=== PATIENT | male | born 1965 | race Caucasian/White ===

== ENCOUNTER 2018-02-08 14:17 | Observation (INO) | payer BC ==
[2018-02-08] MEDS ORDERED: NORMAL SALINE 1000 ML 1,000 ML IV ONE (14:28)
[2018-02-08] MEDS ORDERED: ONDANSETRON HCL INJ/PF 4 MG/2 ML SDV IV ONE (14:28)
[2018-02-08] MEDS ORDERED: MORPHINE SULFATE 10 MG/ML INJ IV ONE (14:30)
--- NOTE | 2018-02-08 14:31 | ER Document Report ---
ED Medical Screen (RME) - General Chief Complaint: Abdominal Pain Stated Complaint: ABDOMINAL PAIN Time Seen by Provider: 02/08/18 14:23 Notes: Patient is a 52-year-old male that presents to the emergency department for chief complaint of abdominal pain at site of his abdominal hernia. ROS: Unless otherwise stated in this report the patient's positive and negative responses for review of systems for constitutional, eyes, ENT, cardiovascular, respiratory, gastrointestinal, neurological, genitourinary, musculoskeletal, and integumentary systems and related systems to the presenting problem are either as stated in the HPI or were not pertinent or were negative for the symptoms and/or complaints related to the presenting medical problem. PHYSICAL EXAMINATION: Vital signs reviewed. GENERAL: Well-appearing, well-nourished and in no acute distress. HEAD: Atraumatic, normocephalic. EYES: Pupils equal round extraocular movements intact, conjunctiva are normal. ENT: Nares patent NECK: Normal range of motion CV: Heart regular rate and rhythm LUNGS: No respiratory distress Abdomen: There is a palpable supraumbilical hernia, that is tender to palpate, unable to reduce currently on the patient's exam in the chair. Musculoskeletal: Normal range of motion NEUROLOGICAL: Normal speech PSYCH: Normal mood, normal affect. MDM: Patient seen and examined for rapid initial assessment. Vital signs reviewed. A comprehensive ED assessment and evaluation of the patient, analysis of test results and completion of the medical decision making process will be conducted by additional ED providers. *Note is created using voice recognition software and may contain spelling, syntax or grammatical errors. TRAVEL OUTSIDE OF THE [place] IN LAST 30 DAYS: No - Related Data Allergies/Adverse Reactions: No Known Allergies Allergy (Verified 05/30/13 18:12) Past Medical History - Social History Frequency of alcohol use: Occasional Drug Abuse: None - Past Medical History Cardiac Medical History: Reports: Hx Hypercholesterolemia, Hx Hypertension Endocrine Medical History: Reports: Hx Diabetes Mellitus Type 2 Renal/ Medical History: Denies: Hx Peritoneal Dialysis Past Surgical History: Reports: Hx Cardiac Surgery - stents Physical Exam - Vital signs Vitals: Temp Pulse Resp BP Pulse Ox 97.9 F 82 18 158/101 H 95 02/08/18 14:21 02/08/18 14:21 02/08/18 14:21 02/08/18 14:21 02/08/18 14:21 Course - Vital Signs Vital signs: Temp Pulse Resp BP Pulse Ox 97.9 F 82 18 158/101 H 95 02/08/18 14:21 02/08/18 14:21 02/08/18 14:21 02/08/18 14:21 02/08/18 14:21 Doctor's Discharge - Discharge Referrals: ТАТЬЯНА MARINELLI MD [Primary Care Provider] - Follow up as needed
--- NOTE | 2018-02-08 14:49 | ER Document Report ---
ED General - General Mode of Arrival: Ambulatory Information source: Patient TRAVEL OUTSIDE OF THE [place] IN LAST 30 DAYS: No <MANUEL ORTEGA - Last Filed: 02/08/18 14:56> <DEMETRIO HOPE - Last Filed: 02/08/18 16:08> - General Chief Complaint: Abdominal Pain Stated Complaint: ABDOMINAL PAIN Time Seen by Provider: 02/08/18 14:23 Notes: Patient is a 52 year old male with HTN, type 2 diabetes, GERD, hyperlipidemia, coronary stents x3, presents to the emergency department complaining of abdominal pain onset this morning. Patient states he began to have pain over his abdominal hernia located above the umbilicus around 7 am this morning. Patient states the pain has been constant, not worsening or getting better and radiates to the left side of his abdomen. He states his last meal was around 2100 last night. Patient also mentions having cold symptoms that he finished his prescribed medications for today. (MANUEL ORTEGA) - Related Data Allergies/Adverse Reactions: No Known Allergies Allergy (Verified 05/30/13 18:12) Past Medical History - General Information source: Patient - Social History Smoking Status: Never Smoker Frequency of alcohol use: Occasional Drug Abuse: None Family History: CAD Patient has suicidal ideation: No Patient has homicidal ideation: No - Past Medical History Cardiac Medical History: Reports: Hx Hypercholesterolemia, Hx Hypertension Endocrine Medical History: Reports: Hx Diabetes Mellitus Type 2 Past Surgical History: Reports: Hx Cardiac Surgery - stents <MANUEL ORTEGA - Last Filed: 02/08/18 14:56> Review of Systems - Review of Systems Constitutional: No symptoms reported EENT: See HPI, Nose congestion Cardiovascular: No symptoms reported Respiratory: No symptoms reported Gastrointestinal: See HPI, Abdominal pain Genitourinary: No symptoms reported Male Genitourinary: No symptoms reported Musculoskeletal: No symptoms reported Skin: No symptoms reported Hematologic/Lymphatic: No symptoms reported Neurological/Psychological: No symptoms reported -: Yes All other systems reviewed and negative <MANUEL ORTEGA - Last Filed: 02/08/18 14:56> Physical Exam - General General appearance: Appears well, Alert In distress: None - HEENT Head: Normocephalic, Atraumatic Eyes: Normal Conjunctiva: Normal Extraocular movements intact: Yes Pupils: PERRL Nasal: Other - Congestion, consistent with history. Mucous membranes: Normal Neck: Normal - Respiratory Respiratory status: No respiratory distress Chest status: Nontender Breath sounds: Normal Chest palpation: Normal - Cardiovascular Rhythm: Regular Heart sounds: Normal auscultation Murmur: No Friction rub: No Gallop: None auscultated - Abdominal Inspection: Obese Distension: No distension Bowel sounds: Normal Tenderness: Tender - Firm mass to the left of midline, just above umbilicus which is tender to palpation. Organomegaly: No organomegaly - Back Back: Normal - Extremities General upper extremity: Normal ROM General lower extremity: Normal ROM - Neurological Neuro grossly intact: Yes Cognition: Normal Orientation: AAOx4 [place] Coma Scale Eye Opening: Spontaneous [place] Coma Scale Verbal: Oriented Nancy Coma Scale Motor: Obeys Commands Nancy Coma Scale Total: 15 Speech: Normal - Psychological Associated symptoms: Normal affect, Normal mood - Skin Skin Temperature: Warm Skin Moisture: Dry Skin Color: Normal <MANUEL ORTEGA - Last Filed: 02/08/18 14:56> - Vital signs Vitals: Temp Pulse Resp BP Pulse Ox 97.9 F 82 18 158/101 H 95 02/08/18 14:21 02/08/18 14:21 02/08/18 14:21 02/08/18 14:21 02/08/18 14:21 Course <MANUEL ORTEGA - Last Filed: 02/08/18 14:56> - Laboratory Result Diagrams: 02/08/18 14:55 02/08/18 14:55 - Consults Dr. Dietrich Time consulted: 15:15 Consulted provider: will come to ER <DEMETRIO HOPE - Last Filed: 02/08/18 16:08> - Re-evaluation Re-evalutation: 02/08/18 15:07 The patient was receiving his pain medication second attempt to reduce the painful supraumbilical mass. He states it suddenly felt like it had relaxed and felt better. On reexamination, the incarcerated hernia mass seems to have reduced itself. This likely occurred due to the patient being laying almost flat on his back and relaxing. (DEMETRIO HOPE) - Vital Signs Vital signs: Temp Pulse Resp BP Pulse Ox 97.9 F 82 18 158/101 H 95 02/08/18 14:21 02/08/18 14:21 02/08/18 14:21 02/08/18 14:21 02/08/18 14:21 - Laboratory Laboratory results interpreted by me: 02/08/18 02/08/18 02/08/18 14:55 14:55 14:55 WBC 11.5 H RDW 14.2 H Absolute Neutrophils 8.4 H Potassium 5.1 H Glucose 140 H Lactic Acid 2.3 H Discharge <MANUEL ORTEGA - Last Filed: 02/08/18 14:56> - Discharge Admitting Provider: Surgicalist Unit Admitted: Surgical Floor <DEMETRIO HOPE - Last Filed: 02/08/18 16:08> - Discharge Clinical Impression: Supraumbilical hernia, High blood pressure associated with diabetes Condition: Stable Disposition: ADMITTED INPATIENT Referrals: ТАТЬЯНА MARINELLI MD [Primary Care Provider] - Follow up as needed Scribe Attestation: 02/08/18 15:20 I personally performed the services described in the documentation, reviewed and edited the documentation which was dictated to the scribe in my presence, and it accurately records my words and actions. (DEMETRIO HOPE) Scribe Documentation - Scribe Written by Scribe:: Erica Das, 02/08/2018 14:51 acting as scribe for :: Constantin <MANUEL ORTEGA - Last Filed: 02/08/18 14:56>
[2018-02-08 15:15] LABS: ABSOLUTE BASOPHILS # (AUTO) 0.1 10^3/uL (0.0-0.2); ABSOLUTE EOSINOPHILS # (AUTO) 0.1 10^3/uL (0.0-0.6); ABSOLUTE MONOCYTES (AUTO) 0.8 10^3/uL (0.1-1.4); ABSOLUTE NEUT (AUTO) 8.4 10^3/uL (1.7-8.2); EOSINOPHILS % (AUTO) 1.2 % (0-6); HEMATOCRIT 46.6 % (37.9-51.0); HEMOGLOBIN 15.8 g/dL (13.5-17.0); LYMPHOCYTES % (AUTO) 17.2 % (13-45); MEAN CORPUSCULAR HEMOGLOBIN 28.9 pg (27.0-33.4); MEAN CORPUSCULAR VOLUME 85 fl (80-97); MONOCYTES % (AUTO) 7.2 % (3-13); PLATELET COUNT 273 10^3/uL (150-450); RED BLOOD COUNT 5.48 10^6/uL (4.35-5.55); RED CELL DISTRIBUTION WIDTH 14.2 % (11.5-14.0); SEGMENTED NEUTROPHILS % (AUTO) 73.4 % (42-78); TOTAL CELLS COUNTED % (AUTO) 100 %; WHITE BLOOD COUNT 11.5 10^3/uL (4.0-10.5)
[2018-02-08 15:36] LABS: BLOOD UREA NITROGEN 15 mg/dL (7-20); CALCIUM 9.9 mg/dL (8.4-10.2); GLUCOSE 140 mg/dL (75-110)
[2018-02-08 15:37] LABS: ALANINE AMINOTRANSFERASE 72 U/L (21-72); ALBUMIN 4.3 g/dL (3.5-5.0); ALKALINE PHOSPHATASE 92 U/L (38-126); ANION GAP 11 (5-19); ASPARTATE AMINO TRANSFERASE 39 U/L (17-59); BILIRUBIN,DIRECT 0.4 mg/dL (0.0-0.4); CARBON DIOXIDE 29 mmol/L (22-30); CHLORIDE 101 mmol/L (98-107); LIPASE 34.1 U/L (23-300); POTASSIUM 5.1 mmol/L (3.6-5.0); SODIUM 141.3 mmol/L (137-145); TOTAL PROTEIN 7.4 g/dL (6.3-8.2)
[2018-02-08] MEDS ORDERED: MORPHINE SULFATE 10 MG/ML INJ IV PRN (16:42)
[2018-02-08] MEDS ORDERED: GLUCAGON,HUMAN RECOMB 1 MG INJ SUBCUT PRN (16:42)
[2018-02-08] MEDS ORDERED: ONDANSETRON HCL INJ/PF 4 MG/2 ML SDV IV PRN (16:42)
[2018-02-08] MEDS ORDERED: DEXTROSE 40% GEL 15 GM TUBE PO PRN ×2 (16:42)
[2018-02-08] MEDS ORDERED: DEXTROSE 50%-WATER 25 GM/50 ML DISP.SYRIN IV PRN ×2 (16:42)
[2018-02-08] MEDS ORDERED: KETOROLAC TROMETHAMINE INJ/PF 30 MG/1 ML SDV IV PRN (16:48)
[2018-02-08] MEDS ORDERED: GLUCAGON,HUMAN RECOMB 1 MG INJ IM PRN (16:49)
[2018-02-08] MEDS ORDERED: INSULIN LISPRO 100 UNIT/ML 3 ML VIAL SUBCUT PRN (16:49)
[2018-02-08] MEDS ORDERED: NITROGLYCERIN 0.4 MG/TAB 25 TAB/BOTTLE SL PRN (16:50)
[2018-02-08 18:04] LABS: APPEARANCE,URINE SLIGHTLY-CLOUDY; BILIRUBIN,URINE NEGATIVE (NEGATIVE); COLOR,URINE YELLOW; GLUCOSE, URINE NEGATIVE (NEGATIVE); KETONES,URINE NEGATIVE (NEGATIVE); LEUKOCYTE ESTERASE,URINE NEGATIVE (NEGATIVE); NITRITE,URINE NEGATIVE (NEGATIVE); PROTEIN,URINE 30 mg/dL (NEGATIVE); URINE SPECIFIC GRAVITY 1.028; UROBILINOGEN,URINE NEGATIVE mg/dL (<2.0)
--- NOTE | 2018-02-08 19:37 | PDOC CONSULTATION ---
Consultation Consult Date: 02/08/18 Attending physician:: CAMILLA ELIZONDO Consult reason:: Preop clearance History of Present Illness Admission Date/PCP: 02/08/18 16:32 ТАТЬЯНА MARINELLI MD Patient complains of: Abdominal pain History of Present Illness: MANNY RENDON is a 52 year old male with HTN, type 2 diabetes, GERD, hyperlipidemia , coronary stents x3, presents to the emergency department complaining of abdominal pain onset this morning. Patient states he began to have pain over his abdominal hernia located above the umbilicus around 7 am this morning. Patient states the pain has been constant, not worsening or getting better and radiates to the left side of his abdomen. He states his last meal was around 2100 last night. Patient also mentions having cold symptoms that he finished his prescribed medications for today. Patient describes having coronary stent placed about 4 or 5 years ago in [place]. He could not remember when his last stress test was. 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 Patient claims to be physically active but does not exercise. Patient does give history of loud snoring. Patient is noted to have elevated lactic acid level. Past Medical History Cardiac Medical History: Reports: Hyperlipidema, Hypertension Endocrine Medical History: Reports: Diabetes Mellitus Type 2 Past Surgical History Past Surgical History: Reports: Coronary Stent Social History Information Source: Patient Smoking Status: Never Smoker - Advance Directive Resuscitation Status: Full Code Surrogate healthcare decision maker:: Patient's boyfriend by the name of madina michael Family History Family History: CAD Parental Family History Reviewed: Yes Children Family History Reviewed: Yes Sibling(s) Family History Reviewed.: Yes Medication/Allergy Home Medications: Metoprolol Succinate [Toprol Xl] 100 mg PO DAILY 05/30/13 Aspirin [Lucy Chewable] 81 mg PO DAILY PRN 01/30/14 Nitroglycerin [Nitrostat 0.4 mg (1/150 Gr) Tabs 25/Bottle] 1 tab SL Q5MP PRN Pantoprazole Sodium 40 mg PO DAILY 01/30/14 Amlodipine Besylate 5 mg PO DAILY 02/08/18 Dulaglutide [Trulicity] 1 dose SQ ASDIR PRN 02/08/18 Rosuvastatin Calcium 5 mg PO DAILY 02/08/18 Telmisartan 80 mg PO DAILY 02/08/18 Allergies/Adverse Reactions: No Known Allergies Allergy (Verified 05/30/13 18:12) Review of Systems Review of Systems: Please see history of present illness and past medical history as wall. Constitutional: No fever or chills reported. Head : No recent chronic headaches, recent head injury. Eyes: No recent eye pain, diplopia, redness, discharge, acute visual changes. Ears: No recent chronic ear pain, acute hearing loss, ear discharge. Oral cavity: No recent ulcerations, bleeding, oral cavity discomfort. Neck: No recent acute neck pain reported. Hematologic: No recent easy bruising or bleeding. Lymphatic: No recent lymph node enlargement reported. Cardiovascular system review: See history of present illness. Respiratory system review: No hemoptysis or blood clots in the lungs reported. Mild Shortness of breath on exertion Gastrointestinal system review: Negative for any recent acute hematemesis, melena. Abdominal pain as noted above. Genitourinary system review: No recent acute or chronic hematuria, flank pain, UTI etc. reported. Skin system review: Negative for any recent abnormal bruising, no rash, no pruritus reported. Neurologic: No prior history of strokes, mini strokes, seizure disorder. Psychologic: No history of major psychosis or major depression reported. Musculoskeletal: Minor aches and pains reported. No acute joint swelling reported. Endocrine: No recent polyuria, polydipsia, recent heat or cold intolerance. Physical Exam Vital Signs: Temp Pulse Resp BP Pulse Ox 98.1 F 67 18 122/75 95 02/08/18 17:46 02/08/18 17:46 02/08/18 14:21 02/08/18 17:46 02/08/18 17:46 Exam: GENERAL: well-nourished and in no acute distress. Alert and oriented x3 HEAD: Atraumatic, normocephalic. EYES: CANDACE, sclera anicteric, conjunctiva are normal. ENT: Moist mucous membranes. No oral ulcerations or bleeding gums noted. No obvious ear, nose or throat abnormalities noted. NECK: supple without lymphadenopathy. Trachea is central. No cervical or axillary lymphadenopathy noted. Carotids are 2+, JVD WNL LUNGS: Breath sounds clear bilaterally. No wheezes rales or rhonchi noted. No significant dullness noted on percussion. CHEST: Palpation of the chest wall shows no significant chest wall tenderness. 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 ABDOMEN: Abdominal wall hernia noted with tenderness and hypoactive bowel sounds. Rest of the exam per surgical list. EXTREMITIES: Pedal pulses are 1-2+, no calf tenderness noted. No clubbing or cyanosis. negative pedal edema noted NEUROLOGICAL: Focused neurological exam showed no significant neurologic deficit. Normal speech, no focal weakness appreciated. PSYCH: Normal mood, normal affect. Judgment and insight within normal limits. SKIN: No significant ecchymosis, skin is noted to be warm. MUSCULOSKELETAL EXAM: No significant acute joint swelling noted. Results Laboratory Results: 02/08/18 17:48 Urine Color YELLOW Urine Appearance SLIGHTLY-CLOUDY Urine pH 6.0 Ur Specific [place] 1.028 Urine Protein 30 H Urine Glucose (UA) NEGATIVE Urine Ketones NEGATIVE Urine Blood NEGATIVE Urine Nitrite NEGATIVE Ur Leukocyte Esterase NEGATIVE Urine WBC (Auto) 1 Urine RBC (Auto) 1 EKG Comments: Sinus rhythm, no acute ST-T wave changes are noted Assessment & Plan - Diagnosis (1) Incarcerated hernia Is this a current diagnosis for this admission?: Yes (2) Hypertension Qualifiers: Hypertension type: essential hypertension Qualified Code(s): I10 - Essential (primary) hypertension Is this a current diagnosis for this admission?: Yes (3) Diabetes Qualifiers: Diabetes mellitus type: type 2 Diabetes mellitus senior care insulin use: unspecified senior care insulin use status Diabetes mellitus complication status : with unspecified complications Qualified Code(s): E11.8 - Type 2 diabetes mellitus with unspecified complications Is this a current diagnosis for this admission?: Yes (4) Coronary artery disease Qualifiers: Coronary Disease-Associated Artery/Lesion type: [place] artery [place] vs. transplanted heart: [place] heart Associated angina: angina presence unspecified Qualified Code(s): I25.10 - Atherosclerotic heart disease of [place] coronary artery without angina pectoris Is this a current diagnosis for this admission?: Yes (5) Preoperative cardiovascular examination Is this a current diagnosis for this admission?: Yes (6) Obesity Qualifiers: Obesity type: unspecified obesity type Obesity classification: unspecified obesity classification Serious obesity comorbidity presence: unspecified whether serious comorbidity present Qualified Code(s): E66.9 - Obesity, unspecified Is this a current diagnosis for this admission?: Yes (7) Sleep-disordered breathing Is this a current diagnosis for this admission?: Yes - Notes Notes: Patient with multiple cardiac risk factors and has elevated lactic acid level. Will obtain a stat EKG and echocardiogram for preop clearance. It seems patient stable from cardiovascular standpoint and seems to need the surgery therefore cleared. Recommend DVT prophylaxis, adequate pain control, pulmonary toilet etc. we will be happy to take care of any postop complications, however cardiology coverage may be somewhat spotty. May consider involving hospitalist if not already involved in this patient's management. Incarcerated hernia/preop cardiovascular examination: This is being suspected and patient to go to the OR. Have been asked to clear patient. Patient currently is stable without any ongoing angina, CHF, patient maintaining sinus rhythm therefore at average risk. Patient coronary stent was about 4 or 5 years ago therefore if antiplatelet agent needs to be held, this could be held. Coronary artery disease: Symptomatically stable. Have ordered a 2D echo just because the lactic acid level is high and patient did not have a recent echocardiogram. He does not know his LV function status. Hypertension: Blood pressure under satisfactory control. Beta-blockers, MARIE inhibitor/ARB preferred. Obesity: Patient will benefit from gradual weight loss this was explained to the patient. This should help multiple comorbidities that he has. Sleep disordered breathing: Patient is noted to have a very narrow oropharynx and Mallampati class IV. Patient also has loud habitual snoring which is bothersome to other people. Patient has been advised to undergo a sleep study at a later date. Patient informed to tell anesthesiologist that he might have sleep apnea syndrome. tomorrow - Time Time Spent: 30 to 50 Minutes - CODE STATUS was discussed, patient remains full code. Surrogate decision-maker unchanged. Multiple medical problems were addressed. More than 50% of the time spent coordinating care, discussing management plans with involved caregivers. Management plans discussed with involved personnels. Medical decision making was of moderate to high complexity , patient's has multiple comorbidities. Medications reviewed and adjusted accordingly: Yes
--- NOTE | 2018-02-08 20:10 | XCELERA REPORT ---
[address] [address] Transthoracic Echocardiogram Report Name: MANNY RENDON Age: 52 yrs Gender: Male : 1965 Patient [facility] Date: 02/08/2018 07:11 PM Height: 69 in Weight: 279 lb BSA: 2.4 m2 Procedure: A complete two-dimensional transthoracic echocardiogram was performed (2D, M-mode, spectral and color flow Doppler). The study was technically adequate with some images being suboptimal in quality. Reason For Study: Preop clearance Ordering Physician: JESSICA HIGGINS Performed By: Chidi Coleman Interpretation Summary The left ventricular ejection fraction is normal. There is mild concentric left ventricular hypertrophy. LV diastolic function could not be adequately assessed. The left ventricle is grossly normal size. Wall motion cannot be accurately commented on, but no definite regional wall motion abnormalities noted. Borderline right ventricular enlargement. The right ventricular systolic function is normal. Borderline left atrial enlargement. The right atrium is normal in size There is a trace amount of mitral regurgitation There is no mitral valve stenosis. There is no aortic valve stenosis No aortic regurgitation is present. There is no tricuspid stenosis. No tricuspid regurgitation. The aortic root is not well visualized but is probably normal size. The inferior vena cava was not visualized There is no pericardial effusion. MMode/2D Measurements & Calculations RVDd: 2.8 cm LVIDd: 4.8 cm FS: 20.5 % Ao root diam: 3.5 cm IVSd: 1.4 cm LVIDs: 3.8 cm EDV(Teich): 105.8 ml Ao root area: 9.4 cm2 LVPWd: 0.73 cm ESV(Teich): 61.6 ml LA dimension: 3.6 cm EF(Teich): 41.7 % LVOT diam: 1.7 cm LVOT area: 2.2 cm2 Doppler Measurements & Calculations MV E max toby: MV P1/2t max toby: Ao V2 max: LV V1 max P.6 cm/sec 100.8 cm/sec 100.8 cm/sec 2.3 mmHg MV A max toby: MV P1/2t: 69.7 msec Ao max PG: LV V1 max: 64.2 cm/sec MVA(P1/2t): 3.2 cm2 4.1 mmHg 76.0 cm/sec MV E/A: 1.1 MV dec slope: KORTNEY(V,D): 1.7 cm2 423.2 cm/sec2 MV dec time: 0.27 sec PA V2 max: MV P1/2t-pr_phl: 136.3 cm/sec 69.7 msec PA max P.5 mmHg Left Ventricle The left ventricle is grossly normal size. There is mild concentric left ventricular hypertrophy. The left ventricular ejection fraction is normal. LV diastolic function could not be adequately assessed. Wall motion cannot be accurately commented on, but no definite regional wall motion abnormalities noted. Right Ventricle Borderline right ventricular enlargement. There is normal right ventricular wall thickness. The right ventricular systolic function is normal. Atria The right atrium is normal in size. Borderline left atrial enlargement. Interarterial septum not well visualized and not well dopplered. Cannot comment on ASD/PFO presence. Mitral Valve The mitral valve is grossly normal. There is no mitral valve stenosis. There is a trace amount of mitral regurgitation. Aortic Valve The aortic valve is not well visualized secondary to technical limitations. The aortic valve opens well. There is no aortic valve stenosis. No aortic regurgitation is present. Tricuspid Valve The tricuspid valve is not well visualized, but is grossly normal. There is no tricuspid stenosis. No tricuspid regurgitation. Pulmonic Valve The pulmonic valve is not well visualized. Great Vessels The aortic root is not well visualized but is probably normal size. The inferior vena cava was not visualized. Effusions There is no pericardial effusion. : JESSICA HIGGINS > Jessica Higgins
--- NOTE | 2018-02-08 21:19 | PDOC H&P ---
History of Present Illness Admission Date/PCP: 02/08/18 16:32 ТАТЬЯНА MARINELLI MD Patient complains of: Tender periumbilical hernia that is not reducible. History of Present Illness: MANNY RENDON is a 52 year old male with a one-day history of an irreducible periumbilical hernia. He has had his hernia for several months, but it has always been reducible. The patient awoke from sleep today and noticed that his hernia was protruding and tender. Throughout the day the patient attempted to reduce the hernia, without success. His pain increased, and he presented to the emergency department. His pain is sharp and stabbing. At worst it is 8 out of 10. Pain does not radiate. Palpation makes it worse, nothing makes it better. The patient denies fevers, chills, nausea, vomiting, orthostasis, dizziness, blurry vision, fatigue, malaise, chest pain, shortness of breath. The patient has a history of coronary artery disease with several stents placed 4 years ago. Past Medical History Cardiac Medical History: Reports: Hyperlipidema, Hypertension Endocrine Medical History: Reports: Diabetes Mellitus Type 2 Past Surgical History Past Surgical History: Reports: Coronary Stent - 2013 Social History Smoking Status: Never Smoker Frequency of Alcohol Use: Occasional Hx Recreational Drug Use: No Hx Prescription Drug Abuse: No - Advance Directive Resuscitation Status: Full Code Family History Family History: CAD Parental Family History Reviewed: Yes Children Family History Reviewed: Yes Sibling(s) Family History Reviewed.: Yes Medication/Allergy Home Medications: Metoprolol Succinate [Toprol Xl] 100 mg PO DAILY 05/30/13 Aspirin [Lucy Chewable] 81 mg PO DAILY PRN 01/30/14 Nitroglycerin [Nitrostat 0.4 mg (1/150 Gr) Tabs 25/Bottle] 1 tab SL Q5MP PRN Pantoprazole Sodium 40 mg PO DAILY 01/30/14 Amlodipine Besylate 5 mg PO DAILY 02/08/18 Dulaglutide [Trulicity] 1 dose SQ ASDIR PRN 02/08/18 Rosuvastatin Calcium 5 mg PO DAILY 02/08/18 Telmisartan 80 mg PO DAILY 02/08/18 Allergies/Adverse Reactions: No Known Allergies Allergy (Verified 05/30/13 18:12) Review of Systems Constitutional: ABSENT: anorexia, chills, fatigue, fever(s), headache(s), night sweats Eyes: ABSENT: visual disturbances Ears: ABSENT: hearing changes Nose, Mouth, and Throat: ABSENT: sore throat Cardiovascular: ABSENT: chest pain, dyspnea on exertion Respiratory: ABSENT: cough, dyspnea Gastrointestinal: PRESENT: abdominal pain. ABSENT: bloating, constipation, melena, nausea, vomiting Genitourinary: ABSENT: dysuria Musculoskeletal: ABSENT: back pain Integumentary: ABSENT: pruritus, rash Neurological: ABSENT: abnormal gait, abnormal movements, abnormal speech, confusion, convulsions, dizziness Psychiatric: ABSENT: anxiety, depression Endocrine: ABSENT: cold intolerance, heat intolerance Hematologic/Lymphatic: ABSENT: easy bleeding, easy bruising Physical Exam Vital Signs: Temp Pulse Resp BP Pulse Ox 97.4 F 67 18 123/65 97 02/08/18 18:42 02/08/18 18:42 02/08/18 18:42 02/08/18 18:42 02/08/18 18:42 General appearance: PRESENT: obese Head exam: PRESENT: atraumatic, normocephalic Eye exam: PRESENT: EOMI, PERRLA. ABSENT: scleral icterus Mouth exam: PRESENT: moist, neck supple Teeth exam: ABSENT: poor dentation Neck exam: ABSENT: meningismus, tenderness, thyromegaly, tracheal deviation Respiratory exam: PRESENT: clear to auscultation benson, unlabored. ABSENT: chest wall tenderness, tachypnea, wheezes Cardiovascular exam: PRESENT: RRR Pulses: PRESENT: normal radial pulses GI/Abdominal exam: PRESENT: hernia - Periumbilical. Reduced prior to my arrival., soft. ABSENT: guarding, rebound, tenderness Rectal exam: PRESENT: deferred Extremities exam: ABSENT: clubbing Musculoskeletal exam: ABSENT: deformity Neurological exam: PRESENT: alert, awake, oriented to person, oriented to place , oriented to time, oriented to situation, CN II-XII grossly intact Psychiatric exam: ABSENT: agitated, anxious, depressed Focused psych exam: ABSENT: delusional Skin exam: ABSENT: cyanosis, erythema, jaundice Results Laboratory Results: 02/08/18 17:48 Urine Color YELLOW Urine Appearance SLIGHTLY-CLOUDY Urine pH 6.0 Ur Specific [place] 1.028 Urine Protein 30 H Urine Glucose (UA) NEGATIVE Urine Ketones NEGATIVE Urine Blood NEGATIVE Urine Nitrite NEGATIVE Ur Leukocyte Esterase NEGATIVE Urine WBC (Auto) 1 Urine RBC (Auto) 1 Assessment & Plan - Diagnosis (1) Incarcerated hernia Is this a current diagnosis for this admission?: Yes - Plan Summary Plan Summary: This is a 52-year-old male with a previously incarcerated periumbilical hernia. Upon my arrival I discovered that the patient's hernia had been reduced. The patient still has significant tenderness. I have discussed several options with him, including urgent operative intervention versus discharge and elective repair. The patient is very concerned that his hernia will become incarcerated again. This is reasonable. I will admit the patient, have cardiology evaluate his cardiac risk, and plan for surgical intervention tomorrow. I have discussed weight loss and tight glucose control at length with the patient, as these factors make him high risk for recurrence. The patient has expressed good understanding.
[2018-02-08] MEDS ORDERED: ATORVASTATIN CALCIUM 10 MG TABLET PO SCH (22:00)
--- NOTE | 2018-02-08 22:07 | EKG REPORT ---
SEVERITY:- NORMAL ECG - SINUS RHYTHM : Confirmed by: Jessica Clifford 08-Feb-2018 22:06:50
[2018-02-09] MEDS ORDERED: NORMAL SALINE 1000 ML 1,000 ML IV PRN (00:12)
[2018-02-09 04:54] LABS: ABSOLUTE BASOPHILS # (AUTO) 0.1 10^3/uL (0.0-0.2); ABSOLUTE EOSINOPHILS # (AUTO) 0.2 10^3/uL (0.0-0.6); ABSOLUTE LYMPHOCYTES (AUTO) 2.6 10^3/uL (0.5-4.7); ABSOLUTE MONOCYTES (AUTO) 1.1 10^3/uL (0.1-1.4); ABSOLUTE NEUT (AUTO) 7.3 10^3/uL (1.7-8.2); BASOPHILS % (AUTO) 0.7 % (0-2); EOSINOPHILS % (AUTO) 1.5 % (0-6); HEMATOCRIT 42.8 % (37.9-51.0); HEMOGLOBIN 14.8 g/dL (13.5-17.0); LYMPHOCYTES % (AUTO) 23.1 % (13-45); MEAN CORPUSCULAR HEMOGLOBIN 29.3 pg (27.0-33.4); MEAN CORPUSCULAR HGB CONC 34.5 g/dL (32.0-36.0); MEAN CORPUSCULAR VOLUME 85 fl (80-97); MONOCYTES % (AUTO) 9.6 % (3-13); PLATELET COUNT 238 10^3/uL (150-450); RED BLOOD COUNT 5.04 10^6/uL (4.35-5.55); RED CELL DISTRIBUTION WIDTH 13.9 % (11.5-14.0); SEGMENTED NEUTROPHILS % (AUTO) 65.1 % (42-78); TOTAL CELLS COUNTED % (AUTO) 100 %; WHITE BLOOD COUNT 11.2 10^3/uL (4.0-10.5)
[2018-02-09 05:17] LABS: ANION GAP 11 (5-19); BLOOD UREA NITROGEN 14 mg/dL (7-20); CALCIUM 9.3 mg/dL (8.4-10.2); CARBON DIOXIDE 29 mmol/L (22-30); CHLORIDE 102 mmol/L (98-107); GLUCOSE 121 mg/dL (75-110); POTASSIUM 4.6 mmol/L (3.6-5.0); SODIUM 141.5 mmol/L (137-145)
--- NOTE | 2018-02-09 06:56 | EKG REPORT ---
SEVERITY:- NORMAL ECG - SINUS RHYTHM : Confirmed by: Jessica Clifford 09-Feb-2018 06:55:26
--- NOTE | 2018-02-09 07:44 | PDOC PROGRESS REPORT ---
Subjective Progress Note for:: 02/09/18 Reason For Visit: INCARCERATED VENTRAL HERNIA Physical Exam Vital Signs: Temp Pulse Resp BP Pulse Ox 97.9 F 67 16 112/57 L 97 02/08/18 22:42 02/08/18 23:28 02/08/18 22:42 02/08/18 22:42 02/08/18 23:28 Intake & Output 02/08/18 02/09/18 02/10/18 06:59 06:59 06:59 Intake Total 350 Balance 350 Weight 126.2 kg Results Laboratory Results: 02/09/18 04:14 02/09/18 04:14 02/08/18 02/09/18 02/09/18 17:48 04:14 04:14 WBC 11.2 H RBC 5.04 Hgb 14.8 Hct 42.8 MCV 85 MCH 29.3 MCHC 34.5 RDW 13.9 Plt Count 238 Seg Neutrophils % 65.1 Lymphocytes % 23.1 Monocytes % 9.6 Eosinophils % 1.5 Basophils % 0.7 Absolute Neutrophils 7.3 Absolute Lymphocytes 2.6 Absolute Monocytes 1.1 Absolute Eosinophils 0.2 Absolute Basophils 0.1 Sodium 141.5 Potassium 4.6 Chloride 102 Carbon Dioxide 29 Anion Gap 11 BUN 14 Creatinine 0.85 Est GFR ( Amer) > 60 Est GFR (Non-Af Amer) > 60 Glucose 121 H Calcium 9.3 Urine Color YELLOW Urine Appearance SLIGHTLY-CLOUDY Urine pH 6.0 Ur Specific [place] 1.028 Urine Protein 30 H Urine Glucose (UA) NEGATIVE Urine Ketones NEGATIVE Urine Blood NEGATIVE Urine Nitrite NEGATIVE Ur Leukocyte Esterase NEGATIVE Urine WBC (Auto) 1 Urine RBC (Auto) 1 Assessment & Plan - Diagnosis (1) Incarcerated hernia Is this a current diagnosis for this admission?: Yes - Plan Summary Plan Summary: This is a 52-year-old male with a periumbilical hernia that became incarcerated at home. He presented to the ER, where it was reduced. The patient is currently admitted for ventral hernia repair, to prevent recurrent incarceration or strangulation. The plan is for laparoscopic versus open hernia repair today. The patient is in agreement with the treatment plan. Risks/benefits discussed, informed consent obtained, and all questions answered.
[2018-02-09] MEDS ORDERED: PROPOFOL INJ 200 MG/20 ML VIAL IV ONE (08:24)
[2018-02-09] MEDS ORDERED: ACETAMINOPHEN 1,000 MG/100 ML RTUPB IV ONE (08:24)
[2018-02-09] MEDS ORDERED: MIDAZOLAM 2 MG/2 ML INJ ONE (08:24)
[2018-02-09] MEDS ORDERED: FENTANYL CITRATE INJ/PF 100 MCG/2 ML AMPUL ONE ×2 (08:24→11:05)
[2018-02-09] MEDS ORDERED: BUPIVACAINE HCL 0.5 % INJ/PF 30 ML SDV ONE (08:29)
[2018-02-09] MEDS ORDERED: CEFAZOLIN INJ 1 GM VIAL ONE (08:50)
[2018-02-09] MEDS ORDERED: DIPHENHYDRAMINE HCL 50 MG/ML VIAL IV PRN (09:34)
[2018-02-09] MEDS ORDERED: PROMETHAZINE HCL INJ 25 MG/1 ML VIAL IV PRN ×2 (09:34)
[2018-02-09] MEDS ORDERED: MEPERIDINE HCL/PF INJ 25 MG/1 ML DISP.SYRIN IV PRN (09:34)
[2018-02-09] MEDS ORDERED: FENTANYL CITRATE INJ/PF 100 MCG/2 ML AMPUL IV PRN ×2 (09:34)
[2018-02-09] MEDS ORDERED: MORPHINE SULFATE 10 MG/ML INJ IV PRN (09:34)
[2018-02-09] MEDS ORDERED: METOPROLOL SUCCINATE 50 MG TAB.SR.24H PO SCH (10:00)
[2018-02-09] MEDS ORDERED: LANSOPRAZOLE 30 MG TAB.RAP.DR PO SCH (10:00)
[2018-02-09] MEDS ORDERED: ENOXAPARIN SODIUM INJ 40 MG/0.4 ML DISP.SYRIN SUBCUT SCH (10:00)
[2018-02-09] MEDS ORDERED: ASPIRIN 81 MG TABLET, CHEWABLE PO SCH (10:00)
[2018-02-09] MEDS ORDERED: ONDANSETRON HCL INJ/PF 4 MG/2 ML SDV IV PRN ×2 (10:25→13:00)
[2018-02-09] MEDS ORDERED: KETOROLAC TROMETHAMINE INJ/PF 30 MG/1 ML SDV IV PRN (10:25)
[2018-02-09] MEDS ORDERED: KETOROLAC TROMETHAMINE 10 MG TABLET PO PRN (10:25)
--- NOTE | 2018-02-09 10:33 | Operative Report ---
Operative Report DATE OF SURGERY: 02/09/18 PREOPERATIVE DIAGNOSIS: 1. Incarcerated umbilical hernia. 2. History of coronary artery disease. 3. Obesity POSTOPERATIVE DIAGNOSIS: Same OPERATION: Laparoscopic umbilical herniorrhaphy, primary closure with ventral light mesh repair SURGEON: DEDE ANAND 1ST COMMUNITY ADVOCATE: Cassandra. MS3 ANESTHESIA: GA TISSUE REMOVED OR ALTERED: None COMPLICATIONS: None ESTIMATED BLOOD LOSS: Scant INTRAOPERATIVE FINDINGS: See below PROCEDURE: The patient was taken to the preop holding her to the main operating room where general anesthesia was induced. The abdomen was previously clipped of hair; the patient had previously voided. The arms were abducted, and the abdomen prepped and draped with a Betadine Surgical plan and surgical timeout conducted Markings were made on the anterior abdominal wall for anticipated 3 port laparoscopy. Skin was Katelin times with quarter percent Marcaine. A left upper quadrant 5 mm incision was made with a knife, Veress needle inserted the peritoneal cavity, pneumoperitoneum was established. Veress needle was removed , 5 mm ports inserted and a 5 mm. Under direct visualization 2 additional ports were placed, one in the left lower quadrant and one in the right midfield. Findings were significant for the greater omentum stuck into the umbilical hernia sac with residual tissue incarcerated therein. Using a combination of blunt, grasper, and LigaSure dissection, the residual incarcerated omentum was eviscerated hernia sac. We took down the falciform ligament with the LigaSure device. This now gave us exposure to the hernia which was a true umbilical hernia with a fascial defect of approximately 4 cm in diameter by 3 cm in height. Was no evidence of bleeding. We elected to close the defect using transcutaneously placed #1 PDS sutures. The skin was anesthetized at the umbilicus quarter percent Marcaine. A jovani was made in the skin with the 11 blade. Using the suture passer, under direct visualization, 3 opted [id number] #1 PDS sutures were placed under direct visualization, bringing the fascial defect of the umbilicus closed horizontally. We secured the knots with the abdominal compartment completely decompressed. Of note because of the patient's body habitus, diabetes, and other factors, the patient's shoe integrity was poor, and the mirror passage of the suture passer through the fascia caused tearing of the tissue. Nonetheless all knots were secured, and the fascial defect closed We now brought onto the field a non- 4.5 inch diameter circular ventral light mesh, by [employer]. It was affixed with sutures at the 12, 3, 6, 9:00 positions with 0 PDS suture. The mesh was oriented, moistened, rolled, brought the anterior abdominal wall at the right mid quadrant port site. The mesh was unrolled, and brought up to the anterior abdominal wall using the suture passer all under direct visualization. Pneumoperitoneum was decompressed, and not secured. We now applied approximately 18 absorbent tack jami in a circumferential fashion securing the mesh to the anterior abdominal wall. Conclusion photos obtained. We were satisfied with the reconstruction. We reinspected the peritoneal cavity checked for bleeding or bowel injury and there was none. Sponge and needle counts are correct. All ports removed under direct visualization, pneumoperitoneum evacuated, wounds closed with benzoin Steri-Strips. Patient was extubated and taken recovery in stable condition. He will be fixed with an abdominal binder.
[2018-02-09] MEDS ORDERED: ALBUTEROL SULFATE 0.083% NEB 2.5 MG/3 ML AMPUL NEB ONE (10:54)
[2018-02-09] MEDS: FENTANYL CITRATE INJ/PF 100 MCG/2 ML AMPUL IV PRN ×2 (11:08→11:15)
[2018-02-09] MEDS ORDERED: KETOROLAC TROMETHAMINE 60 MG/2 ML SDV ONE (13:47)
[2018-02-09] MEDS ORDERED: SUCCINYLCHOLINE CHLORIDE INJ 200 MG/10 ML VIAL ONE (13:47)
[2018-02-09] MEDS ORDERED: ONDANSETRON HCL INJ/PF 4 MG/2 ML SDV ONE (13:47)
[2018-02-09] MEDS ORDERED: ROCURONIUM BROMIDE INJ 50 MG/5 ML VIAL IV ONE (13:47)
[2018-02-09] MEDS ORDERED: CIPROFLOXACIN 400 MG/D5W RTU 400 MG/200 ML RTUPB IV SCH (14:00)
[2018-02-09] MEDS ORDERED: DOCUSATE SODIUM 100 MG CAPSULE PO SCH (18:00)
[2018-02-09 18:01] VITALS: BP 105/66
--- NOTE | 2018-02-09 23:04 | PDOC PROGRESS REPORT ---
Subjective Progress Note for:: 02/09/18 Subjective:: Patient was seen prior to discharge. He was noted to be doing well. He had surgery without any complications. Reason For Visit: INCARCERATED VENTRAL HERNIA Physical Exam Vital Signs: Temp Pulse Resp BP Pulse Ox 97.8 F 75 18 105/66 96 02/09/18 17:35 02/09/18 17:35 02/09/18 17:35 02/09/18 17:35 02/09/18 17:35 Intake & Output 02/08/18 02/09/18 02/10/18 06:59 06:59 06:59 Intake Total 350 2690 Output Total 515 Balance 350 2175 Weight 126.2 kg General appearance: PRESENT: no acute distress, well-developed, well-nourished Head exam: PRESENT: atraumatic, normocephalic Eye exam: PRESENT: conjunctiva pink, EOMI, PERRLA. ABSENT: scleral icterus Ear exam: PRESENT: normal external ear exam Mouth exam: PRESENT: moist, tongue midline Neck exam: ABSENT: carotid bruit, JVD, lymphadenopathy, thyromegaly Respiratory exam: PRESENT: clear to auscultation benson. ABSENT: rales, rhonchi, wheezes Cardiovascular exam: PRESENT: RRR. ABSENT: diastolic murmur, rubs, systolic murmur Pulses: PRESENT: normal dorsalis pedis pul Vascular exam: PRESENT: normal capillary refill GI/Abdominal exam: PRESENT: normal bowel sounds, soft, other - Post surgical findings noted.. ABSENT: distended, guarding, mass, organolmegaly, rebound, tenderness Rectal exam: PRESENT: deferred Extremities exam: PRESENT: full ROM. ABSENT: calf tenderness, clubbing, pedal edema Neurological exam: PRESENT: alert, awake, oriented to person, oriented to place , oriented to time, oriented to situation, CN II-XII grossly intact. ABSENT: motor sensory deficit Psychiatric exam: PRESENT: appropriate affect, normal mood. ABSENT: homicidal ideation, suicidal ideation Skin exam: PRESENT: dry, intact, warm. ABSENT: cyanosis, rash Results Laboratory Results: 02/09/18 04:14 02/09/18 04:14 02/09/18 02/09/18 04:14 04:14 WBC 11.2 H RBC 5.04 Hgb 14.8 Hct 42.8 MCV 85 MCH 29.3 MCHC 34.5 RDW 13.9 Plt Count 238 Seg Neutrophils % 65.1 Lymphocytes % 23.1 Monocytes % 9.6 Eosinophils % 1.5 Basophils % 0.7 Absolute Neutrophils 7.3 Absolute Lymphocytes 2.6 Absolute Monocytes 1.1 Absolute Eosinophils 0.2 Absolute Basophils 0.1 Sodium 141.5 Potassium 4.6 Chloride 102 Carbon Dioxide 29 Anion Gap 11 BUN 14 Creatinine 0.85 Est GFR ( Amer) > 60 Est GFR (Non-Af Amer) > 60 Glucose 121 H Calcium 9.3 Assessment & Plan - Diagnosis (1) Incarcerated hernia Is this a current diagnosis for this admission?: Yes (2) Hypertension Qualifiers: Hypertension type: essential hypertension Qualified Code(s): I10 - Essential (primary) hypertension Is this a current diagnosis for this admission?: Yes (3) Diabetes Qualifiers: Diabetes mellitus type: type 2 Diabetes mellitus mcc insulin use: unspecified mcc insulin use status Diabetes mellitus complication status : with unspecified complications Qualified Code(s): E11.8 - Type 2 diabetes mellitus with unspecified complications Is this a current diagnosis for this admission?: Yes (4) Coronary artery disease Qualifiers: Coronary Disease-Associated Artery/Lesion type: samish artery [place] vs. transplanted heart: samish heart Associated angina: angina presence unspecified Qualified Code(s): I25.10 - Atherosclerotic heart disease of samish coronary artery without angina pectoris Is this a current diagnosis for this admission?: Yes (5) Preoperative cardiovascular examination Is this a current diagnosis for this admission?: Yes (6) Obesity Qualifiers: Obesity type: unspecified obesity type Obesity classification: unspecified obesity classification Serious obesity comorbidity presence: unspecified whether serious comorbidity present Qualified Code(s): E66.9 - Obesity, unspecified Is this a current diagnosis for this admission?: Yes (7) Sleep-disordered breathing Is this a current diagnosis for this admission?: Yes - Notes Notes: Incarcerated hernia, Post op, s/p surgery: Patient was seen prior to discharge. He was noted to be doing well. He had surgery without any complications. Coronary artery disease: Symptomatically stable. Hypertension: Blood pressure under satisfactory control. Beta-blockers, MARIE inhibitor/ARB preferred. Obesity: Patient will benefit from gradual weight loss this was explained to the patient. This should help multiple comorbidities that he has. Sleep disordered breathing: Patient is noted to have a very narrow oropharynx and Mallampati class IV. Patient also has loud habitual snoring which is bothersome to other people. Patient has been advised to undergo a sleep study at a later date. - Time Time with patient: 15-25 minutes
--- NOTE | 2018-02-10 10:16 | DISCHARGE SUMMARY E ---
Discharge Summary NAME: MANNY RENDON : 1965 AGE: 52Y ADMITTED: 02/08/2018 DISCHARGED: 02/09/2018 REASON FOR ADMISSION: INCARCERATED UMBILICAL HERNIA. SUMMARY OF HOSPITALIZATION: Patient is a 51-year-old male with a history of incarcerated umbilical hernia who presents to the Emergency Department with pain, tenderness, leukocytosis. The hernia was reduced in the emergency department. He clinically felt better and was admitted to the hospital for definitive management. Past medical and surgical history can be found in history and physical document. Patient was kept n.p.o. on IV fluids over night, and cleared by Cardiology Service to undergo the planned operative intervention. The patient was taken to the operating room by Dr. Celio Bridges on 02/09/2018 where he underwent laparoscopic umbilical herniorrhaphy, primary closure with ventral light mesh repair in the intraperitoneal cavity. Patient tolerated the procedure well. Postoperatively did well, tolerated diet, voided, and was felt to be ready for discharge home. Of note, he was producing a significant amount of mucus and likely has had an upper respiratory tract infection recently. FINAL DIAGNOSES: 1. Incarcerated umbilical hernia status post operative repair, Dr. Bridges, laparoscopic with mesh. 2. History of coronary artery disease with stent. 3. Obesity. 4. Diabetes mellitus. DISPOSITION: Patient discharged home with care of his family. Follow up with [facility] in approximately 1 to 2 weeks. Wear an abdominal binder at all times while up, take stool softener daily, and take Toradol p.r.n. pain. Prescriptions have been provided. Patient instructed to go to the primary care provider if symptoms of respiratory infection not improved in the next 48 hours. DICTATING PHYSICIAN: CELIO BRIDGES M.D. [id number] PHY#: [id number] ID: [id number] JOB#: [id number] ACCT: [id number] cc:Bandar ECHAVARRIA M.D. >
== END 2018-02-09 20:25 | disposition home or self-care (01) ==
LOC: ER 14:17 → EH 16:32 → INTOOBSV 16:32 → OBSVTOIN 16:42 → 5 18:33
PROVIDERS: ATTEND Surgery
PROC: 0WUF4JZ Supplement Abdominal Wall with Synthetic Substitute, Percutaneous Endoscopic Approach (ICD-10-PCS; principal; 2018-02-09 09:00)
DX: K42.0 Umbilical hernia with obstruction, without gangrene (principal); I25.10 Atherosclerotic heart disease of native coronary artery without angina pectoris; E66.9 Obesity, unspecified; E11.8 Type 2 diabetes mellitus with unspecified complications; I10 Essential (primary) hypertension; K21.9 Gastro-esophageal reflux disease without esophagitis; E78.5 Hyperlipidemia, unspecified; R74.0 Nonspecific elevation of levels of transaminase and lactic acid dehydrogenase [LDH]; R06.02 Shortness of breath; R06.83 Snoring; G47.30 Sleep apnea, unspecified; R09.81 Nasal congestion; Z95.5 Presence of coronary angioplasty implant and graft; Z79.82 Long term (current) use of aspirin; Z79.899 Other long term (current) drug therapy; Z82.49 Family history of ischemic heart disease and other diseases of the circulatory system; Z01.810 Encounter for preprocedural cardiovascular examination; Z68.41 Body mass index [BMI] 40.0-44.9, adult
CPT/HCPCS: 49653; 99285; 96361; 96374; 96375; 36415 ×2; 82962 ×2; 83605; 83690; 85025 ×2; 80048; 80053; 81001; 93306; 93005 ×2; 93010 ×2; G0378 ×3; C1758; C1713; C1781; J2250; J3490 ×3; J0690; J1885; J3010; J2270; J0330; J2405 ×2; J7030 ×2; J2704; J0744; J0131; 752

== ENCOUNTER → 2020-03-31 | Outpatient (CLI) | payer BC ==
[~2020-03-31] MED LIST: COVID-19 VACCINE (PFIZER)/PF 30 MCG/0.3 ML VIAL IM ONE; EPINEPHRINE INJ/PF 1 MG/1 ML AMPULE IM PRN
== END ==
LOC: EMPHEALTH 09:58
PROVIDERS: ATTEND Internal Medicine
DX: Z23 Encounter for immunization (principal)
CPT/HCPCS: 91300

== ENCOUNTER → 2020-04-21 | Outpatient (CLI) | payer BC | LOC: EMPHEALTH 09:56 | PROVIDERS: ATTEND Internal Medicine | DX: Z23 Encounter for immunization (principal) | CPT/HCPCS: 91300 ==